=== PATIENT | female | born 1990 ===

== ENCOUNTER 2017-04-18 10:37 | Emergency (ER) | payer BC, MEDICAID, OTHER ==
[2017-04-18 10:38] VITALS: BMI 20.9
[2017-04-18 11:57] VITALS: PULSE 71; RESP 18; TEMP 98.2; O2SAT 96
[2017-04-18 11:59] VITALS: BP 99/63
--- NOTE | 2017-04-18 13:41 | C.PDOC ---
History Of Present Illness 27-year-old female, presents to the emergency department with complaints of anxiety. Patient states she has a Hx of anxiety, but denies any SI/HI. Patient has a Hx of multiple visits to [facility] and [facility] for same complaint. No other complaints at this time. Time Seen by Provider: 04/18/17 10:59 Chief Complaint (Nursing): Psychiatric Evaluation History Per: Patient History/Exam Limitations: no limitations Past Medical History Reviewed: Historical Data, Nursing Documentation, Vital Signs Vital Signs: Last Vital Signs Temp 98.2 F 04/18/17 11:56 Pulse 71 04/18/17 11:56 Resp 18 04/18/17 11:56 BP 99/63 L 04/18/17 11:59 Pulse Ox 96 04/18/17 13:44 - Medical History PMH: Anxiety, Asthma, Bipolar Disorder, Depression, Fibromyalgia Denies: Diabetes, Hepatitis, HIV, HTN, Chronic Kidney Disease, Seizures, Sexually Transmitted Disease - [facility] Procedures INDIVID PSYCHOTHERAP NEC (04/23/14) MANUAL ASSIST DELIV NEC (10/26/14) NEBULIZER THERAPY (03/07/14) OTHER GROUP THERAPY (04/23/14) PSYCHIA INTERV/EVAL NEC (10/18/13) REPAIR OB LACERATION NEC (10/26/14) Family History: States: No Known Family Hx - Social History Hx Tobacco Use: No Hx Alcohol Use: No Hx Substance Use: No - Immunization History Hx Tetanus Toxoid Vaccination: No Hx Influenza Vaccination: No Hx Pneumococcal Vaccination: No Review Of Systems Psych: Positive for: Anxiety. Negative for: Psychosis, Suicidal ideation, Withdrawal Physical Exam - Physical Exam Appears: Non-toxic, No Acute Distress, Other (Anxious appearing) Skin: Normal Color, Warm, Dry, No Rash Head: Normacephalic Eye(s): bilateral: PERRL Neurological/Psych: Oriented x3, Normal Speech ED Course And Treatment O2 Sat by Pulse Oximetry: 96 (RA) Pulse Ox Interpretation: Normal Disposition - Disposition Disposition: HOME/ ROUTINE Disposition Time: 11:05 Condition: GOOD Additional Instructions: Thank you for letting us take care of you today. The emergency medical care you received today was directed at your acute symptoms. If you were prescribed any medication, please fill it and take as directed. It may take several days for your symptoms to resolve. Return to the Emergency Department if your symptoms worsen, do not improve, or if you have any other problems. Please contact your doctor or call one of the physicians/clinics you have been referred to that are listed on the Patient Visit Information form that is included in your discharge packet. Bring any paperwork you were given at discharge with you along with any medications you are taking to your follow up visit. Our treatment cannot replace ongoing medical care by a primary care provider (PCP) outside of the emergency department. Thank you for allowing the [facility] team to be part of your care today. Follow up with [facility] today as directed by our psychiatric staff when you leave the emergency room. Michelle por dejarnos atenderlo hoy. La atencin mdica de emergencia que recibi hoy estaba dirigida a adriana sntomas agudos. Si le prescribieron algn medicamento, llnelo y tome segn las indicaciones. Adriana sntomas pueden tardar varios holland en resolverse. Regrese al Departamento de Emergencia si adriana s ntomas empeoran, no mejoran o si tiene algn otro problema. Comunquese con philip mdico o llame a pablo de los mdicos / clnicas a los que butler sido referido que figura en el formulario de Informacin de visita del paciente que se incluye en philip paquete de yariel. Traiga todos los documentos que recibi al momento del yariel junto con los medicamentos que est tomando en philip visita de seguimiento. Nuestro tratamiento no puede reemplazar la atencin mdica en curso por parte de un proveedor de atencin primaria (PCP) fuera del departamento de emergencias. Michelle por permitir que el equipo de [facility] sea parte de philip cuidado hoy. Mili un seguimiento con [facility] hoy segn las indicaciones de nuestro personal psiquitrico cuando salga de la radha de emergencias. Instructions: Generalized Anxiety Disorder Forms: Gen Discharge Inst Faroese Print Language: MACEDONIAN - Clinical Impression Clinical Impression: Anxiety - Scribe Statement The provider has reviewed the documentation as recorded by the Scribe (River Pickering) All medical record entries made by the Scribe were at my direction and personally dictated by me. I have reviewed the chart and agree that the record accurately reflects my personal performance of the history, physical exam, medical decision making, and the department course for this patient. I have also personally directed, reviewed, and agree with the discharge instructions and disposition.
== END 2017-04-18 12:00 | disposition home or self-care (01) ==
LOC: C.ER 10:37
DX: F41.9 Anxiety disorder, unspecified (principal); M79.7 Fibromyalgia

== ENCOUNTER 2017-05-12 23:15 | Emergency (ER) | payer BC ==
[2017-05-12 23:16] VITALS: BMI 20.9
[2017-05-12 23:24] VITALS: TEMP 98.6
[2017-05-13 00:11] LABS: HCG,QUALITATIVE URINE NEGATIVE (NEGATIVE)
[2017-05-13 00:24] LABS: SQUAMOUS EPITHIAL 6 /hpf (0-5); URINE BACTERIA FEW (<OCC); URINE BILIRUBIN NEGATIVE (NEGATIVE); URINE BLOOD NEGATIVE (NEGATIVE); URINE CLARITY Hazy (Clear); URINE COLOR Yellow (YELLOW); URINE GLUCOSE (UA) NORMAL (Normal); URINE LEUKOCYTE ESTERASE 2+ Leu/uL (Negative); URINE PROTEIN 1+ mg/dL (NEGATIVE); URINE UROBILINOGEN NORMAL mg/dL (0.2-1.0)
[2017-05-13] MEDS ORDERED: Lactated Ringer's 1,000 ML IVB STA (00:29)
[2017-05-13] MEDS ORDERED: Lactated Ringer's 1,000 ML ONE (00:43)
[2017-05-13 00:45] LABS: BASO % 0.5 % (0.0-2.0); EOS # 0.3 K/uL (0.0-0.7); EOS % 3.5 % (0.0-4.0); HEMOGLOBIN 11.7 g/dL (11.0-16.0); LYMPH # 3.1 K/uL (1.0-4.3); LYMPH % 35.1 % (20.0-40.0); MEAN CELL VOLUME 86.8 fL (81.0-99.0); MEAN CORPUSCULAR HGB CONC 33.4 g/dL (33.0-37.0); MEAN PLATELET VOLUME 8.7 fL (7.2-11.7); MONO # 0.8 K/uL (0.0-0.8); MONO % 8.7 % (0.0-10.0); NEUT # 4.6 K/uL (1.8-7.0); NEUT % 52.2 % (50.0-75.0); NRBC % 0.3 % (0.0-2.0); RBC 4.03 Mil/uL (3.80-5.20); RED CELL DISTRIBUTION WIDTH 15.2 % (11.5-14.5); WHITE BLOOD COUNT 8.8 K/uL (4.8-10.8)
[2017-05-13 00:55] LABS: ALBUMIN 3.9 g/dL (3.5-5.0); ALT/SGPT 19 U/L (9-52); AST/SGOT 19 U/L (14-36); BLOOD UREA NITROGEN 11 mg/dL (7-17); CALCIUM 8.8 mg/dl (8.6-10.4); GFR AFRICAN-AMERICAN > 60; GFR NON-AFRICAN AMERICAN > 60; LIPASE 206 U/L (23-300)
[2017-05-13] MEDS ORDERED: Tmp-Smz 800 mg-160 mg DS Tab PO STA (01:16)
--- NOTE | 2017-05-13 01:19 | C.PDOC ---
Time Seen by Provider: 05/13/17 00:21 Chief Complaint (Nursing): Abdominal Pain History Per: Patient Onset/Duration Of Symptoms: Days (2) Current Symptoms Are (Timing): Still Present Severity: Moderate Location Of Pain/Discomfort: Suprapubic Associated Symptoms: Nausea, Vomiting, Diarrhea, Urinary Symptoms Alleviating Factors: None Additional History Per: Prior Records Past Medical History Reviewed: Historical Data, Nursing Documentation, Vital Signs Vital Signs: Last Vital Signs Temp 98.6 F 05/12/17 23:18 Pulse 100 H 05/12/17 23:18 Resp 20 05/12/17 23:18 BP 108/63 05/12/17 23:18 Pulse Ox 98 05/12/17 23:18 - Medical History PMH: Anxiety, Asthma, Bipolar Disorder, Depression, Fibromyalgia Surgical History: No Surg Hx - [facility] Procedures INDIVID PSYCHOTHERAP NEC (04/23/14) MANUAL ASSIST DELIV NEC (10/26/14) NEBULIZER THERAPY (03/07/14) OTHER GROUP THERAPY (04/23/14) PSYCHIA INTERV/EVAL NEC (10/18/13) REPAIR OB LACERATION NEC (10/26/14) Family History: States: Unknown Family Hx - Social History Hx Tobacco Use: No Hx Alcohol Use: No Hx Substance Use: No - Immunization History Hx Tetanus Toxoid Vaccination: No Hx Influenza Vaccination: No Hx Pneumococcal Vaccination: No Review Of Systems Except As Marked, All Systems Reviewed And Found Negative. Constitutional: Negative for: Fever Cardiovascular: Negative for: Chest Pain Respiratory: Negative for: Cough, Shortness of Breath Gastrointestinal: Positive for: Nausea, Vomiting, Abdominal Pain, Diarrhea. Negative for: Melena, Hematochezia, Hematemesis Genitourinary: Positive for: Frequency Skin: Negative for: Rash Neurological: Negative for: Weakness, Numbness Physical Exam - Physical Exam Appears: Non-toxic, No Acute Distress Skin: Normal Color, Warm, Dry, No Rash Head: Atraumatic, Normacephalic Eye(s): bilateral: Normal Inspection, PERRL, EOMI Oral Mucosa: Moist Neck: Normal ROM, Supple Cardiovascular: Rhythm Regular Respiratory: Normal Breath Sounds, No Accessory Muscle Use Gastrointestinal/Abdominal: Soft, Tenderness (suprapubic), No Distention, No Guarding, No Rebound Back: No CVA Tenderness Extremity: Normal ROM Neurological/Psych: Oriented x3, Normal Motor, Normal Sensation ED Course And Treatment - Laboratory Results Result Diagrams: 05/13/17 00:41 05/13/17 00:41 Lab Interpretation: Abnormal Interpretation Of Abnormal: UTI (urine C&S sent) Urine POC: Negative O2 Sat by Pulse Oximetry: 98 Pulse Ox Interpretation: Normal Progress - Interventions Interventions:: Observation, Intravenous fluid - Medications Administered Intravenous: Antiemetic, H-2 akbar, NSAID - Data Reviewed Data Reviewed: Lab, Old records - Patient Status Patient status: Mostly improved - Continuity of Care Discussed patient case with:: Patient, ED Nurse - Patient Plan Patient Plan: Discharge, F/U with PCP, Continue present meds Medical Decision Making Medical Decision Making: Last urine culture grew E. Coli that was sensitive to Bactrim. Disposition Counseled Patient/Family Regarding: Studies Performed, Diagnosis, Need For Followup, Rx Given - Disposition Disposition: HOME/ ROUTINE Disposition Time: 01:21 Condition: IMPROVED Additional Instructions: Drink plenty of fluids. Follow up with your doctor this week. Return to the ER if you develop fever, not tolerating fluids, worsening of symptoms or if you have any other concerns. Prescriptions: Ondansetron [Zofran] 4 mg PO Q8H PRN #15 tab PRN Reason: Nausea/Vomiting Sulfamethoxazole/Trimethoprim [Bactrim DS 800 mg-160 mg] 1 tab PO BID #14 tab Instructions: Viral Gastroenteritis, Adult (DC), Urinary Tract Infection, Adult (DC) Print Language: MARTINIQUAIS - Clinical Impression Clinical Impression: Nausea vomiting and diarrhea, UTI (urinary tract infection)
[2017-05-13] MEDS ORDERED: Tmp-Smz 800 mg-160 mg DS Tab ONE (01:31)
[2017-05-13 01:42] VITALS: BP 124/75; PULSE 75; RESP 18; O2SAT 99
== END 2017-05-13 01:45 | disposition home or self-care (01) ==
LOC: C.ER 23:15
DX: N39.0 Urinary tract infection, site not specified (principal); R11.2 Nausea with vomiting, unspecified; R19.7 Diarrhea, unspecified
CPT/HCPCS: 80053; 81001; 83690; 84703; 85025; 87086; 96374; 96375; 99284; J1885; J2765; J7120

== ENCOUNTER → 2017-05-30 22:52 | Emergency (ER) | payer BC ==
[2017-05-30 22:52] VITALS: BMI 20.9
== END | disposition left against medical advice (07) ==
LOC: C.ER 22:52
DX: Z02.89 Encounter for other administrative examinations (principal); R10.9 Unspecified abdominal pain

== ENCOUNTER 2017-05-31 18:35 | Emergency (ER) | payer BC ==
[2017-05-31 18:35] VITALS: BMI 20.9
[2017-05-31 18:47] VITALS: RESP 18; TEMP 98.2
--- NOTE | 2017-05-31 19:18 | C.PDOC ---
History Of Present Illness 27 year old female, who is currently around 6 weeks (), presents to the ED for evaluation of vaginal bleeding which began 2 days ago consistent with menstrual period. Pt insists she is 6 weeks by dates but cannot confirm how she knows this. She denies nausea, vomiting. Time Seen by Provider: 05/31/17 18:52 Chief Complaint (Nursing): Female Genitourinary History Per: Patient History/Exam Limitations: no limitations Onset/Duration Of Symptoms: Days (2) Current Symptoms Are (Timing): Still Present Additional History Per: Patient Abnormal Vaginal Bleeding: Yes : 1 Para: 1 Past Medical History Reviewed: Historical Data, Nursing Documentation, Vital Signs Vital Signs: Last Vital Signs Temp 98.2 F 05/31/17 20:29 Pulse 88 05/31/17 20:29 Resp 18 05/31/17 20:29 BP 109/70 05/31/17 20:29 Pulse Ox 100 05/31/17 22:49 - Medical History PMH: Anxiety, Asthma, Bipolar Disorder, Depression, Fibromyalgia, Schizophrenia Denies: HIV, HTN, Chronic Kidney Disease, Seizures, Sexually Transmitted Disease Surgical History: No Surg Hx - [facility] Procedures INDIVID PSYCHOTHERAP NEC (04/23/14) MANUAL ASSIST DELIV NEC (10/26/14) NEBULIZER THERAPY (03/07/14) OTHER GROUP THERAPY (04/23/14) PSYCHIA INTERV/EVAL NEC (10/18/13) REPAIR OB LACERATION NEC (10/26/14) Family History: States: Unknown Family Hx - Social History Hx Tobacco Use: No Hx Alcohol Use: No Hx Substance Use: No - Immunization History Hx Tetanus Toxoid Vaccination: No Hx Influenza Vaccination: No Hx Pneumococcal Vaccination: No Review Of Systems Gastrointestinal: Negative for: Nausea, Vomiting Genitourinary: Positive for: Vaginal Bleeding Physical Exam - Physical Exam Appears: Non-toxic, No Acute Distress Skin: Normal Color, Warm, Dry Head: Atraumatic, Normacephalic Eye(s): bilateral: Normal Inspection Oral Mucosa: Moist Neck: Supple Chest: Symmetrical, No Deformity, No Tenderness Cardiovascular: Rhythm Regular, No Murmur Respiratory: Normal Breath Sounds, No Rales, No Rhonchi, No Wheezing Gastrointestinal/Abdominal: Soft, No Tenderness, No Guarding, No Rebound Extremity: Normal ROM, Capillary Refill (less than 2 seconds ) Neurological/Psych: Oriented x3, Normal Speech, Normal Cognition ED Course And Treatment - Laboratory Results Result Diagrams: 05/31/17 19:16 05/31/17 19:16 Lab Interpretation: Normal (ua neg.) Urine POC: Negative (Quant HCG neg to confirm) O2 Sat by Pulse Oximetry: 100 (on RA) Pulse Ox Interpretation: Normal - CT Scan/US US Pelvis, Transvaginal Other Rad Studies (CT/US): Interpreted By Me, Read By Radiologist, Radiology Report Reviewed CT/US Interpretation: 1. Trace amount of free fluid noted within the endometrial canal. This may be related to history of. vaginal bleeding. 2. No evidence of intrauterine . In the clinical setting of a positive beta hCG and empty. uterus, differential diagnostic considerations include recent , normal early or. ectopic . Serial beta hCG measurement and followup ultrasound might be considered. US Pelvis, Transabdominal Other Rad Studies (CT/US): Interpreted By Me, Read By Radiologist, Radiology Report Reviewed CT/US Interpretation: 1. Nonvisualization of the left ovary. Otherwise, the appearance of the uterus and right ovary is within. the range of normal for a menstruating female. 2. No evidence of intrauterine . In the clinical setting of a positive beta hCG and empty. uterus, differential diagnostic considerations include recent , normal early or. ectopic . Serial beta hCG measurement and followup ultrasound might be considered. Progress Note: Bloodwork, UA, and Transvaginal US ordered and reviewed. Medical Decision Making Medical Decision Making: menstrual period and NOT miscarraige- pt NOT pt lists LMP as 05/17/17 about 2 weeks ago. Pt with poor understanding of NOT (even spoken in jena Tristanian) and does not comprehend negative test of blood, urine and US exam. After an appropriate time trying to educate pt, d/c papers given and signed. Consider underlying Schizo/bipolar making understanding difficult for this pt. Disposition Doctor Will See Patient In The: Office Counseled Patient/Family Regarding: Studies Performed, Diagnosis - Disposition Referrals: [facility] [Outside] Disposition: HOME/ ROUTINE Disposition Time: 20:06 Condition: GOOD Additional Instructions: test negative, both by urine and blood test. Instructions: Menstruation Forms: Lingvist (Ukrainian) - Clinical Impression Clinical Impression: Normal menstrual period - Scribe Statement The provider has reviewed the documentation as recorded by the Scribe (Radha Shannon) Provider Attestation: All medical record entries made by the Scribe were at my direction and personally dictated by me. I have reviewed the chart and agree that the record accurately reflects my personal performance of the history, physical exam, medical decision making, and the department course for this patient. I have also personally directed, reviewed, and agree with the discharge instructions and disposition.
[2017-05-31 19:19] LABS: BASO # 0.1 K/uL (0.0-0.2); EOS # 0.3 K/uL (0.0-0.7); EOS % 3.5 % (0.0-4.0); HEMOGLOBIN 12.3 g/dL (11.0-16.0); LYMPH # 3.2 K/uL (1.0-4.3); LYMPH % 36.5 % (20.0-40.0); MEAN CELL VOLUME 87.1 fL (81.0-99.0); MEAN CORPUSCULAR HEMOGLOBIN 29.6 pg (27.0-31.0); MEAN PLATELET VOLUME 8.5 fL (7.2-11.7); MONO # 0.6 K/uL (0.0-0.8); MONO % 6.6 % (0.0-10.0); NEUT # 4.6 K/uL (1.8-7.0); NEUT % 52.4 % (50.0-75.0); NRBC % 0.1 % (0.0-2.0); RBC 4.16 Mil/uL (3.80-5.20); RED CELL DISTRIBUTION WIDTH 14.3 % (11.5-14.5); WHITE BLOOD COUNT 8.7 K/uL (4.8-10.8)
[2017-05-31 19:24] LABS: HCG,QUALITATIVE URINE NEGATIVE (NEGATIVE)
[2017-05-31 19:33] LABS: ALB/GLOB RATIO 0.9 (1.0-2.1); ALBUMIN 4.1 g/dL (3.5-5.0); ALT/SGPT 20 U/L (9-52); AST/SGOT 29 U/L (14-36); BLOOD UREA NITROGEN 17 mg/dL (7-17); CALCIUM 8.9 mg/dl (8.6-10.4); GFR AFRICAN-AMERICAN > 60; GFR NON-AFRICAN AMERICAN > 60
[2017-05-31 19:39] LABS: SQUAMOUS EPITHIAL 14 /hpf (0-5); URINE BACTERIA OCC (<OCC); URINE BILIRUBIN NEGATIVE (NEGATIVE); URINE BLOOD 3+ (NEGATIVE); URINE CLARITY Hazy (Clear); URINE COLOR Yellow (YELLOW); URINE GLUCOSE (UA) NORMAL (Normal); URINE LEUKOCYTE ESTERASE NEG Leu/uL (Negative); URINE PROTEIN NEGATIVE (NEGATIVE); URINE UROBILINOGEN NORMAL mg/dL (0.2-1.0)
[2017-05-31 20:30] VITALS: BP 109/70; PULSE 88
[2017-05-31 20:48] VITALS: O2SAT 100
--- NOTE | 2017-05-31 21:14 | US ---
EXAM: US Pelvis, Transvaginal CLINICAL HISTORY: 27 years old, female; Signs and symptoms; Other: Vaginal bleed , ? 6wks, ? ectopic; Additional info: Vag bleed, ? 6 weeks, ? ectopic TECHNIQUE: Real-time transvaginal pelvic ultrasound (complete) with image documentation. Transvaginal imaging was used for better evaluation of the endometrium and adnexa. COMPARISON: No relevant prior studies available. FINDINGS: Uterus/cervix: The cervix was closed at the time the examination. The uterus measures 7.5 x 3 x 4.2 cm. The endometrial stripe measures 3 mm. A trace amount of fluid (0.15 x 0.3 x 0.1 cm.) is present within the endometrial canal.. No myometrial mass. Right ovary: The right ovary measures 2.9 x 2.2 x 2 cm and contains a simple cyst measuring 1.8 cm in greatest diameter. Blood flow is seen in the right ovary on color Doppler Left ovary: The left ovary measures 1.3 x 1 x 0.8 cm.. A 6 mm hypoechoic follicle seen in the left ovary with color Doppler examination. Blood flow is seen in the left ovary color Doppler examination. Free fluid: A small moderate free fluid is seen in the posterior cul-de-sac. Impression: 1. Trace amount of free fluid noted within the endometrial canal. This may be related to history of vaginal bleeding. 2. No evidence of intrauterine . In the clinical setting of a positive beta hCG and empty uterus, differential diagnostic considerations include recent , normal early or ectopic . Serial beta hCG measurement and followup ultrasound might be considered. EXAM: US Pelvis Complete, Transabdominal EXAM DATE/TIME: Exam ordered 05/31/2017 6:59 PM CLINICAL HISTORY: 27 years old, female; Signs and symptoms; Other: Vaginal bleed , ? 6wks, ? ectopic; Additional info: Vag bleed, ? 6 weeks, ? ectopic TECHNIQUE: Real-time transabdominal pelvic ultrasound (complete) with image documentation. COMPARISON: PELVIS/TRANSVAG US 2015-02-13 14:27 FINDINGS: Uterus/cervix: The uterus measures 6.4 x 2.9 x 4.3 cm. The endometrial stripe measures 3 mm. No myometrial mass. Right ovary: The right ovary measures 3.1 x 2.1 x 2 cm and contains a complex follicle measuring 2.2 cm in greatest diameter. Blood flow is seen in the right ovary on color Doppler examination. Left ovary: Not seen as a separate structure. Free fluid: No free fluid. Bladder: The bladder is not well distended. IMPRESSION: 1. Nonvisualization of the left ovary. Otherwise, the appearance of the uterus and right ovary is within the range of normal for a menstruating female. 2. No evidence of intrauterine . In the clinical setting of a positive beta hCG and empty uterus, differential diagnostic considerations include recent , normal early or ectopic . Serial beta hCG measurement and followup ultrasound might be considered.
== END 2017-05-31 20:42 | disposition home or self-care (01) ==
LOC: C.ER 18:35
DX: N94.89 Other specified conditions associated with female genital organs and menstrual cycle (principal)

== ENCOUNTER 2017-07-28 22:22 | Emergency (ER) | payer BC ==
[2017-07-28 22:22] VITALS: BMI 20.9
[2017-07-28 22:46] VITALS: O2SAT 100
--- NOTE | 2017-07-28 23:36 | C.PDOC ---
History Of Present Illness 27 year old female with PMHx of anxiety, depression and schizophrenia presents to the ED for evaluation of intermittent left sided CP radiating to his right upper chest, neck, head for the past 5 days. Patient states she feels nauseous and shaky as well today. Patient is not taking medications for her anxiety but does see a psychiatrist for her depression and schizophrenia. Patient states she is stressed out with her daughter's father lack of help which his causing her " great stress". Patient denies SOB, palpitations, fever, chills, nausea, vomit, headache, extremity weakness/numbness, recent travel, leg swelling. Time Seen by Provider: 07/28/17 22:55 Chief Complaint (Nursing): Chest Pain History Per: Patient History/Exam Limitations: no limitations Onset/Duration Of Symptoms: Days (5) Current Symptoms Are (Timing): Still Present Quality: "Pain" Associated Symptoms: Nausea Modifying Factors: None Exacerbating Factors: None Alleviating Factors: None Recent travel outside of the [place]: No Additional History Per: Patient Past Medical History Reviewed: Historical Data, Nursing Documentation, Vital Signs Vital Signs: Last Vital Signs Temp 98.8 F 07/29/17 00:09 Pulse 88 07/29/17 00:09 Resp 20 07/29/17 00:09 BP 110/71 07/29/17 00:09 Pulse Ox 100 07/29/17 01:24 - Medical History PMH: Anxiety, Asthma, Bipolar Disorder, Depression, Fibromyalgia, Schizophrenia Denies: HIV, HTN, Chronic Kidney Disease, Seizures, Sexually Transmitted Disease Surgical History: No Surg Hx - [facility] Procedures INDIVID PSYCHOTHERAP NEC (04/23/14) MANUAL ASSIST DELIV NEC (10/26/14) NEBULIZER THERAPY (03/07/14) OTHER GROUP THERAPY (04/23/14) PSYCHIA INTERV/EVAL NEC (10/18/13) REPAIR OB LACERATION NEC (10/26/14) Family History: States: Unknown Family Hx - Social History Hx Tobacco Use: No Hx Alcohol Use: No Hx Substance Use: No - Immunization History Hx Tetanus Toxoid Vaccination: No Hx Influenza Vaccination: No Hx Pneumococcal Vaccination: No Review Of Systems Constitutional: Negative for: Fever, Chills Cardiovascular: Positive for: Chest Pain. Negative for: Palpitations Respiratory: Negative for: Shortness of Breath Gastrointestinal: Negative for: Nausea, Vomiting Musculoskeletal: Positive for: Neck Pain Skin: Negative for: Rash Neurological: Negative for: Headache, Dizziness Physical Exam - Physical Exam Appears: Non-toxic, No Acute Distress Skin: Normal Color, Warm, Dry Head: Atraumatic, Normacephalic Eye(s): bilateral: Normal Inspection Oral Mucosa: Moist Neck: Normal ROM, Supple Chest: Symmetrical Cardiovascular: Rhythm Regular, No Murmur Respiratory: Normal Breath Sounds, No Rales, No Rhonchi, No Wheezing Gastrointestinal/Abdominal: Soft, No Tenderness, No Guarding, No Rebound Extremity: Normal ROM, No Tenderness, No Swelling Neurological/Psych: Oriented x3, Normal Speech Gait: Steady ED Course And Treatment ECG: Interpreted By Me, Viewed By Me ECG Rhythm: Sinus Rhythm, R BBB (incomplete) ECG Interpretation: Normal Rate From EC (BPM) O2 Sat by Pulse Oximetry: 100 (ON RA) Pulse Ox Interpretation: Normal Progress Note: Plan: - EKG. Patient is resting comfortably, is no longer having chest pain or shortness of breath. Patient has no risk factors for pulmonary emboli or DVT. Clinical presentation is not suggestive of aortic dissection. Patient has h/o of anxiety ad based on presentation- pt's symptoms are most likely due to anxiety. Pt is being discharged home and is being advised to follow up with physician/psychiatrist in 1-2 days for further evaluation. 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 - Scribe Statement The provider has reviewed the documentation as recorded by the Scribe Jelani Marcelo All medical record entries made by the Scribe were at my direction and personally dictated by me. I have reviewed the chart and agree that the record accurately reflects my personal performance of the history, physical exam, medical decision making, and the department course for this patient. I have also personally directed, reviewed, and agree with the discharge instructions and disposition.
[2017-07-29 00:10] VITALS: BP 110/71; PULSE 88; RESP 20; TEMP 98.8
--- NOTE | 2017-07-29 23:05 | CARD ---
APPROVED REPORT EKG Measurement Heart [id number] <Conclusion> Normal sinus rhythm Incomplete right bundle branch block Borderline ECG
== END 2017-07-29 00:10 | disposition home or self-care (01) ==
LOC: C.ER 22:22
DX: F41.9 Anxiety disorder, unspecified (principal); F20.9 Schizophrenia, unspecified; M79.7 Fibromyalgia